=== PATIENT | male | born 1950 | race Caucasian/White ===

== ENCOUNTER 2021-11-02 07:01 | Inpatient (IN) | payer OTHER, SELFPAY ==
[2021-11-02] VITALS (16 sets, daily range): BP systolic 90–130; BP diastolic 39–68
[~2021-11-02] VITALS: Ht 177.8 cm; Wt 49.9 kg
[2021-11-02] MEDS ORDERED: NACL 0.9% 250 ML IV ONE (07:25)
--- NOTE | 2021-11-02 07:26 | NUR ---
WOUND PHOTOS TAKEN AND PLACED INTO PATIENT CHART
--- NOTE | 2021-11-02 07:30 | NUR ---
ASSUMED CARE FOR PATIENT AT THIS TIME
--- NOTE | 2021-11-02 08:00 | NUR ---
71Y M[place] [facility] [place] BLOODLY RED STOOL THAT BEGAN LAST NIGHT. BLOOD CONTINUES TO COME OUT OF PATIENT RECTUM. PT IS CURRENTLY A&OX0 AT THIS TIME AND PT IS NON-VERBAL. PT CURRENTLY WITHDRAWS FROM PAIN AND OPENS EYES TO VOICE. PT IS ABLE TO ANSWER YES OR NO QUESTIONS ONLY. PT ON TBAR ON 4L O2. MULTIPLE WOUNDS/SORE NOTED ON PATIENT R HAND, UPPER BACK, AND BUTTOCK REGION. WOUND PHOTOS TAKEN AND PLACED INTO PATIENT CHART. PT HAS G-TUBE AND CONDOM CATH IN PLACE [place] [facility] [place] BILATERAL UE EDEMA NOTED, +2. BRUISING NOTED WELL ON BILERAL UE. UPON ASCULATION CRACKLES HEARD IN PATIENT LUNGS. BRUISING NOTED ON PATIENT ABDOMEN AND ABDOMEN IS TENDER TO TOUCH. UPON PALPATION ON ADBOMEN PT FLINCHES TO PAIN. pmh: pacemaker, CAD, CABG, CHF, Pulm edema allx: dilaudid
--- NOTE | 2021-11-02 08:01 | NUR ---
PUBLIC INFORMATION SPECIALIST AT PT BEDSIDE.
--- NOTE | 2021-11-02 08:03 | NUR ---
covid yesika collected and urine collected bedside
--- NOTE | 2021-11-02 08:08 | NUR ---
URINE AND CONCHIS PONCE HANDED TO [employer] BEDSIDE
--- NOTE | 2021-11-02 08:15 | NUR ---
LAB AT BEDSIDE COLLECTING BLOODWORK
[2021-11-02] MEDS ORDERED: ONDANSETRON 4 MG/2 ML VIAL IVP PRN (08:40)
[2021-11-02] MEDS ORDERED: DOCUSATE SODIUM 100 MG GELCAP PO PRN (08:40)
[2021-11-02] MEDS ORDERED: LORazepam 2 MG/ML VIAL IVP PRN (08:40)
[2021-11-02] MEDS ORDERED: POTASSIUM CHLORIDE 10 MEQ TABER PO PRN (08:40)
[2021-11-02] MEDS ORDERED: ZOLPIDEM 10 MG TAB PO PRN (08:40)
[2021-11-02] MEDS ORDERED: MAG SULF 2000 MG/WATER PREMIX 50 ML IV PRN (08:40)
[2021-11-02] MEDS ORDERED: ACETAMINOPHEN 325 MG TAB PO PRN (08:40)
[2021-11-02] MEDS ORDERED: DEXT 5% /NACL 0.9% 1,000 ML IV ONE (08:45)
[2021-11-02] MEDS ORDERED: DEXTROSE 50% 50 ML SYR IVP PRN (08:45)
[2021-11-02 08:56] LABS: BASOPHILS % (AUTO) 0.1 % (0.0-2.0); EOSINOPHILS % (AUTO) 0.2 % (0.0-4.0); HEMATOCRIT 20.9 % (36-52); LYMPHOCYTES # (AUTO) 1.7 K/uL (2.0-11.5); LYMPHOCYTES % (AUTO) 14.8 % (20.5-51.1); MEAN CORPUSCULAR HEMOGLOBIN 32 pg (27-31); MEAN CORPUSCULAR HGB CONC 32 g/dL (33-37); MEAN CORPUSCULAR VOLUME 101.2 fL (80-94); MONOCYTES # (AUTO) 0.6 K/uL (0.8-1.0); MONOCYTES % (AUTO) 5.7 % (1.7-9.3); NEUTROPHILS % (AUTO) 79.2 % (42.2-75.2); PLATELET COUNT (AUTO) 40 K/uL (140-450); RED BLOOD CELL COUNT(AUTO) 2.07 MIL/uL (4.20-6.10); RED CELL DISTRIBUTION WIDTH 20.2 % (11.6-13.7); WHITE BLOOD COUNT (AUTO) 11.3 K/uL (4.8-10.8)
[2021-11-02] MEDS ORDERED: OCTREOTIDE ACETATE 1.25 MG in NACL 0.9% 250 ML IV SCH (09:00)
[2021-11-02] MEDS ORDERED: OCTREOTIDE ACETATE 100 MCG/ML VIAL IV SCH (09:00)
[2021-11-02 09:01] LABS: HEMOGLOBIN 6.6 g/dL (12.0-18.0)
[2021-11-02] MEDS ORDERED: FURO-572 GT (09:15)
[2021-11-02] MEDS ORDERED: LISI-486 GT (09:15)
[2021-11-02] MEDS ORDERED: DOCU50LI8 GT (09:15)
[2021-11-02] MEDS ORDERED: POTA10TA70 GT (09:15)
[2021-11-02] MEDS ORDERED: AMIO200T66 GT (09:15)
[2021-11-02] MEDS ORDERED: ASPI-1822 GT (09:15)
[2021-11-02] MEDS ORDERED: ATOR10TA PO (09:20)
[2021-11-02] MEDS ORDERED: CARV3.12 GT (09:20)
[2021-11-02] MEDS ORDERED: [UNRECOGNIZED DRUG - CODE] GT (09:20)
[2021-11-02 09:21] LABS: ALBUMIN 1.1 g/dL (3.4-5.0); ASPARTATE AMINOTRANSFERASE 49 U/L (15-37); CARBON DIOXIDE 23.1 mmol/L (21-32); CHLORIDE 107 mmol/L (98-107); CREATININE 0.7 mg/dL (0.6-1.3); GLUCOSE 121 mg/dL (74-106); POTASSIUM 4.1 mmol/L (3.5-5.1); SODIUM SERUM 136 mmol/L (136-145); TOTAL BILIRUBIN 1.1 mg/dL (0.0-1.0); UREA NITROGEN, BLOOD 38 mg/dL (7-18)
--- NOTE | 2021-11-02 09:24 | NUR ---
CT CONSENT SIGNED AND PLACED INTO PATIENT CHART. VERBAL CONSENT OBTAINED OVER PHONE FROM PATIENT SON/GAVINO ROMERO. DUAL CONSENT HEARD FROM SHANNON LARSON
[2021-11-02] MEDS ORDERED: PANTOPRAZOLE 40 MG INJ VIAL IVP SCH (09:29)
[2021-11-02 09:34] LABS: PROTHROMBIN TIME 12.7 secs (10.8-13.4)
--- NOTE | 2021-11-02 09:43 | NUR ---
BEDSIDE PLACING CENTRAL LINE INTO PATIENT R FEMORAL
[2021-11-02] MEDS ORDERED: NOREPINEPHRINE 4 MG in DEXTROSE 5% 250 ML IV PRN (09:55)
[2021-11-02] MEDS ORDERED: NOREPINEPHRINE 8 MG in DEXTROSE 5% 250 ML IV PRN (09:55)
--- NOTE | 2021-11-02 10:20 | NUR ---
PT TAKEN TO CT VIA [facility] ON THE WAY TO ICU
--- NOTE | 2021-11-02 10:24 | NUR ---
Patient will be admitted to care of DR. BEJARANO. Admited to ICU. Will go to room ICU BED 1. Belongings list completed. Report to SHANNON NGUYEN.
[2021-11-02] MEDS ORDERED: ZOLPIDEM 10 MG TAB GT PRN (10:47)
[2021-11-02] MEDS ORDERED: DOCUSATE 100 MG/10 ML UDC GT PRN (10:50)
[2021-11-02] MEDS ORDERED: POTASSIUM CHLORIDE 20% 40 MEQ/15 ML UDC GT PRN (10:50)
--- NOTE | 2021-11-02 11:00 | NUR ---
RECEIVED REPORT FROM ER NURSE. ADMITTED 71 Y/O MALE [place] [facility] [place] WITH A CC OF RECTAL BLEEDING X1 DAY. ADMITTING DX OF GI BLEED. HX OF CHF, DM, COVID, HTN, HLD, ANEMIA, CABG, AFIB, CARDIAC ARREST, TRACH, PEG.PT IS AOX2, APHASIC, ABLE TO FOLLOW SIMPLE COMMANDS. TRACH TO T-BAR WITH 4L O2. O2SAT 100%, NO SOB. WITH PEG CLAMPED. CONDOM CATH INTACT, DRAINING CLEAR YELLOW URINE. WITH RIGHT FEMORAL CCENTRAL LINE RUNNING D5NS 100 ML/HR, SANDOSTATIN 5ML/HR, LEVOPHED 6MCG/MIN
[2021-11-02] MEDS: ALBUMIN HUMAN 25% 50 ML IV SCH ×4 (11:33→23:47)
[2021-11-02] MEDS: BLOOD GLUCOSE MONITORING 1 DEV DEV FS SCH ×3 (12:27→20:26)
--- NOTE | 2021-11-02 12:30 | NUR ---
SEEN AND EXAMINED BY DR ENRIQUEZ. ORDERED TO GIVE TOTAL OF 2U PRBC AND 2U PLATELETS
[2021-11-02] MEDS: PIPERACILLIN/TAZOBACTAM 3.375 GM in DEXTROSE 5% 50 ML IV SCH ×2 (13:29→20:22)
--- NOTE | 2021-11-02 14:00 | NUR ---
SEEN AND EXAMINED BY DR MORGAN, ORDERS NOTED
--- NOTE | 2021-11-02 14:15 | NUR ---
DR ERNNADEZ CALLED, ORDERED TO FLUSH GT WITH 100ML WATER THEN CHECK FOR BLOOD IN RESIDUALS
[2021-11-02] MEDS: BOWEL EVACUANT DRINK 4,000 ML PDS PO SCH (14:50)
--- NOTE | 2021-11-02 15:00 | NUR ---
DR ERNANDEZ CALLED, SPOKE TO PT'S SON REGARDING COLONOSCOPY. ORDERED TO OBTAIN CONSENT FOR COLONOSCOPY AND GIVE GOLYTELY 10 OUNCES Q1H X 10 DOSES
--- NOTE | 2021-11-02 16:20 | NUR ---
PRBC TRANSFUSION STARTED. WILL MONITOR V/S AND FOR ADVERSE REACTIONS
[2021-11-02] MEDS: INSULIN LISPRO SLIDING SCALE 100 UNITS/ML VIAL SUBQ PRN (16:42)
--- NOTE | 2021-11-02 18:15 | NUR ---
BLOOD TRANSFUSION DONE, VS WNL, NO ADVERSE REACTIONS NOTED
--- NOTE | 2021-11-02 18:20 | NUR ---
SECOND UNIT OF PRBC TRANSFUSION STARTED. WILL MONITOR V/S AND FOR ADVERSE REACTIONS
--- NOTE | 2021-11-02 19:00 | NUR ---
ONGOING BLOOD TRANSFUSION,NO UNTOWARD REACTIONS NOTED AT THIS TIME
--- NOTE | 2021-11-02 19:30 | NUR ---
ASSUMED CARE OF PT.INITIAL ASSESSMENT COMPLETED.PT AWAKE; ABLE TO FOLLOW SIMPLE COMMANDS.SR NOTED ON MONITOR.TRACH TO T PIECE 4LPM.W/TLC TO RT FEMORAL INTACT,W/GOOD BLOOD RETURN TO ALL 3 PORTS.INFUSING BLOOD TRANSFUSION,LEVOPHED 8MG IN 250ML D5W AT 4MCG/MIN,SANDOSTATIN DRIP AT 5ML/HR AND D5NS AT 10 ML/HR.W/GTUBE INTACT,CLAMPED.NPO AT THIS TIME.W/CONDOM CATHETER ALREADY IN PLACE.W/MULTIPLE PRESSURE ULCERS NOTED.GENERALIZED WEAKNESS ON ALL EXTREMITIES.W/SCD TO BLE.FLACC 0
--- NOTE | 2021-11-02 20:00 | NUR ---
GOLYTELY ADMINISTERED ORDERED.
--- NOTE | 2021-11-02 20:15 | NUR ---
ORAL CARE USING VAP KIT GIVEN; PTS MOUTH VERY DRY.MOISTURIZED.INTERMITTENT COUGHING ALSO NOTED; SUCTIONED SMALL AMT OF THICK CREAMY SECRETIONS NOTED.REPOSITIONED.
[2021-11-02] MEDS: AMIODARONE 200 MG TAB GT SCH (20:22)
[2021-11-02] MEDS: PANTOPRAZOLE 40 MG INJ VIAL IVP SCH (20:32)
--- NOTE | 2021-11-02 21:15 | NUR ---
BLOOD TRANSFUSION COMPLETED.NO UNTOWARD REACTIONS NOTED.BM NOTED; MODERATE AMT OF BLOODY STOOL NOTED.PT CLEANED.
[2021-11-03] VITALS (24 sets, daily range): BP systolic 101–129; BP diastolic 50–70
--- NOTE | 2021-11-03 | NUR ---
LARGE AMT OF BLOODY STOOLS NOTED; PT CLEANED.ALL LINENS CHANGED.REPOSITIONED.
[2021-11-03 00:31] LABS: EOSINOPHILS % (AUTO) 0.1 % (0.0-4.0); MEAN CORPUSCULAR HEMOGLOBIN 31 pg (27-31)
[2021-11-03 00:36] LABS: BASOPHILS % (AUTO) 0.1 % (0.0-2.0); HEMATOCRIT 26.2 % (36-52); HEMOGLOBIN 8.7 g/dL (12.0-18.0); LYMPHOCYTES # (AUTO) 1.7 K/uL (2.0-11.5); LYMPHOCYTES % (AUTO) 17.2 % (20.5-51.1); MEAN CORPUSCULAR HGB CONC 33 g/dL (33-37); MEAN CORPUSCULAR VOLUME 94.2 fL (80-94); MONOCYTES # (AUTO) 0.8 K/uL (0.8-1.0); MONOCYTES % (AUTO) 7.6 % (1.7-9.3); NEUTROPHILS # (AUTO) 7.5 K/uL (1.8-7.7); RED BLOOD CELL COUNT(AUTO) 2.78 MIL/uL (4.20-6.10); RED CELL DISTRIBUTION WIDTH 17.6 % (11.6-13.7); WHITE BLOOD COUNT (AUTO) 9.9 K/uL (4.8-10.8)
--- NOTE | 2021-11-03 01:02 | NUR ---
PT WAS PLACED ON CA 28% 6L TRACH CARE COMPLETED STOMA IS RAW AND APPEARS TO HAVE SLIT ON LEFT SIDE AND NOT CURRENTLY BLEEDING PT HAS PRESSURE SORE UNDER RIGHT SIDE OF FLANGE OPTIFOAM PLACED BETWEEN TRACH PAD IN ATTEMPTS OF RELIEVING PRESSURE AND PROVIDING COMFORT RN AWARE AND WILL ENDORSE STOMA CONDITION TO DAY SHIFT WILL CONTINUE TO MONITOR
[2021-11-03 01:54] LABS: PLATELET COUNT (AUTO) 27 K/uL (140-450)
[2021-11-03] MEDS ORDERED: fentaNYL citrate 0.05 MG/ML VIAL ONE (03:36)
[2021-11-03] MEDS ORDERED: MIDAZOLAM 5 MG/5 ML VIAL ONE (03:36)
--- NOTE | 2021-11-03 03:47 | NUR ---
DR ERNANDEZ, GI, AT BEDSIDE TO DO COLONOSCOPY.
[2021-11-03] MEDS ORDERED: LIDOCAINE/EPI 1% 1:100000 20 ML VIAL INJ SCH (04:00)
--- NOTE | 2021-11-03 04:00 | NUR ---
STARTED PLATELET TRANSFUSION, VERIFIED W/SHANNON JEAN BAPTISTE.WILL CONTINUE TO CLOSELY MONITOR PT FOR ANY UNTOWARD REACTIONS.FLACC 0
[2021-11-03] MEDS ORDERED: EPINEPHrine PFS 0.1 MG/ML SYR IVP ONE (04:01)
[2021-11-03] MEDS ORDERED: LIDOCAINE MPF 1% 0 ML ONE (04:02)
[2021-11-03] MEDS ORDERED: LIDOCAINE/EPI MPF 1%1:200000 30 ML VIAL INJ ONE (04:04)
--- NOTE | 2021-11-03 04:15 | NUR ---
BM NOTED; LARGE AMT OF LIQUID BLOODY STOOL.PT CLEANED.REPOSITIONED.FLACC 0
[2021-11-03] MEDS ORDERED: MIDAZOLAM 2 MG/2 ML VIAL IVP ONE (04:30)
[2021-11-03] MEDS ORDERED: fentaNYL citrate 0.05 MG/ML VIAL IVP ONE (04:35)
--- NOTE | 2021-11-03 05:15 | NUR ---
1ST UNIT PLATELETPHERESIS COMPLETED.NO UNTOWARD REACTIONS NOTED.
[2021-11-03] MEDS ORDERED: MIDAZOLAM 2 MG/2 ML VIAL IVP SCH (05:16)
[2021-11-03] MEDS ORDERED: fentaNYL citrate 0.05 MG/ML VIAL IVP SCH (05:17)
--- NOTE | 2021-11-03 05:45 | NUR ---
2ND UNIT PLATELET STARTED,VERIFIED WITH SHANNON JEAN BAPTISTE.
--- NOTE | 2021-11-03 05:54 | NUR ---
PHONE CALL FROM PTS SON, HEATHER, UPDATED ON PTS PRESENT CONDITION.MADE AWARE COLONOSCOPY ALREADY DONE.QUESTIONS ANSWERED
--- NOTE | 2021-11-03 06:00 | NUR ---
TEMP 95.9/TEMPORAL, AXILLA TEMP NOT READING.STACEY HUGGER IN PLACE.ONGOING PLATELET TRANSFUSION
[2021-11-03] MEDS: PIPERACILLIN/TAZOBACTAM 3.375 GM in DEXTROSE 5% 50 ML IV SCH ×3 (06:32→21:45)
[2021-11-03] MEDS: ALBUMIN HUMAN 25% 50 ML IV SCH ×2 (07:00→11:27)
[2021-11-03] MEDS: BLOOD GLUCOSE MONITORING 1 DEV DEV FS SCH ×4 (07:22→23:45)
--- NOTE | 2021-11-03 07:24 | NUR ---
SEEN AND EXAMINED BY DR BEJARANO.UPDATED ON PTS PRESENT CONDITION. Addendum: 11/03/21 at 4413 by Leanna Rivas RN REPORT GIVEN TO PATRICK ORTEGA
--- NOTE | 2021-11-03 07:30 | NUR ---
RECEIVED REPORT FROM CALL CENTER NURSE NURSE. PT IS AOX2, APHASIC, ABLE TO FOLLOW SIMPLE COMMANDS. TRACH TO T-BAR WITH 5L O2. O2SAT 100%, NO SOB. WITH PEG CLAMPED. CONDOM CATH INTACT, DRAINING CLEAR YELLOW URINE. WITH RIGHT FEMORAL CENTRAL LINE RUNNING D5NS 50 ML/HR, SANDOSTATIN 5ML/HR, LEVOPHED OFF SINCE 2029 YESTERDAY. SKIN NOT INTACT, REFER TO SKIN ASSESSMENT. SAFETY PRECAUTIONS IN PLACE. WILL CONTINUE TO MONITOR
[2021-11-03] MEDS: DEXT 5% /NACL 0.9% 1,000 ML IV SCH (07:44)
--- NOTE | 2021-11-03 07:59 | NUR ---
DR ERNANDEZ ORDERED TO STOP SANDOSTATIN AND START TUBE FEEDING, REFER TO FNS FOR TUBE FEEDING
--- NOTE | 2021-11-03 09:00 | NUR ---
DUE MEDS GIVEN VIA GT. TOLERATED WELL. ORAL CARE DONE TURNED AND REPOSITIONED
--- NOTE | 2021-11-03 09:15 | NUR ---
BLADDER DISTENTION NOTED. BLADDER SCAN DONE WITH >359ML RETAINING. DR BEJARANO ORDERED TO INSERT PAEZ
[2021-11-03] MEDS: CALCIUM CARBONATE 500 MG TAB.CHEW GT SCH (09:30)
[2021-11-03] MEDS: AMIODARONE 200 MG TAB GT SCH ×2 (09:30→21:33)
[2021-11-03] MEDS: PANTOPRAZOLE 40 MG INJ VIAL IVP SCH ×2 (09:30→21:17)
--- NOTE | 2021-11-03 09:30 | NUR ---
PAEZ CATH INSERTED ASEPTICALLY, DRAINING CLEAR YELLOW URINE, 400ML OUTPUT
[2021-11-03] MEDS ORDERED: fentaNYL citrate 0.05 MG/ML VIAL IVP PRN (11:40)
--- NOTE | 2021-11-03 12:00 | NUR ---
SEEN AND EXAMINED BY DR ENRIQUEZ. ORDERS NOTED
--- NOTE | 2021-11-03 12:00 | NUR ---
FENTANYL 25MCG GIVEN ORDERED FOR PAIN. WASTED 75MCG FROM VIAL, WITNESSED BY PORTIA
[2021-11-03 12:22] LABS: EOSINOPHILS % (AUTO) 0.2 % (0.0-4.0); HEMOGLOBIN 8.1 g/dL (12.0-18.0); LYMPHOCYTES # (AUTO) 1.3 K/uL (2.0-11.5); LYMPHOCYTES % (AUTO) 12.9 % (20.5-51.1); MEAN CORPUSCULAR HEMOGLOBIN 32 pg (27-31); MEAN CORPUSCULAR HGB CONC 34 g/dL (33-37); MEAN CORPUSCULAR VOLUME 93.6 fL (80-94); MONOCYTES # (AUTO) 0.6 K/uL (0.8-1.0); MONOCYTES % (AUTO) 6.3 % (1.7-9.3); NEUTROPHILS # (AUTO) 8.1 K/uL (1.8-7.7); NEUTROPHILS % (AUTO) 80.6 % (42.2-75.2); PLATELET COUNT (AUTO) 56 K/uL (140-450); RED BLOOD CELL COUNT(AUTO) 2.56 MIL/uL (4.20-6.10)
[2021-11-03 12:32] LABS: ANION GAP 13.6 (8-16); CARBON DIOXIDE 21.5 mmol/L (21-32); CHLORIDE 107 mmol/L (98-107); CREATININE 0.8 mg/dL (0.6-1.3); GLUCOSE 89 mg/dL (74-106); POTASSIUM 3.1 mmol/L (3.5-5.1); SODIUM SERUM 139 mmol/L (136-145); UREA NITROGEN, BLOOD 34 mg/dL (7-18)
[2021-11-03] MEDS: BOWEL EVACUANT DRINK 4,000 ML PDS PO SCH (13:47)
--- NOTE | 2021-11-03 14:30 | NUR ---
PT ASLEEP, NO SOB, FLACC 0, VS WNL
--- NOTE | 2021-11-03 17:00 | NUR ---
NO APPARENT DISTRESS. PT'S SON AT BEDSIDE
--- NOTE | 2021-11-03 17:55 | NUR ---
FENTANYL 25MCG GIVEN ORDERED FOR PAIN. WASTED 75MCG FROM VIAL, WITNESSED BY PORTIA
[2021-11-03 18:37] LABS: BASOPHILS % (AUTO) 0.1 % (0.0-2.0); EOSINOPHILS % (AUTO) 0.3 % (0.0-4.0); HEMATOCRIT 25.9 % (36-52); HEMOGLOBIN 8.6 g/dL (12.0-18.0); LYMPHOCYTES # (AUTO) 1.7 K/uL (2.0-11.5); LYMPHOCYTES % (AUTO) 17.3 % (20.5-51.1); MEAN CORPUSCULAR HEMOGLOBIN 31 pg (27-31); MEAN CORPUSCULAR HGB CONC 33 g/dL (33-37); MEAN CORPUSCULAR VOLUME 94.6 fL (80-94); MONOCYTES # (AUTO) 0.6 K/uL (0.8-1.0); NEUTROPHILS # (AUTO) 7.6 K/uL (1.8-7.7); NEUTROPHILS % (AUTO) 76.3 % (42.2-75.2); PLATELET COUNT (AUTO) 49 K/uL (140-450); RED BLOOD CELL COUNT(AUTO) 2.74 MIL/uL (4.20-6.10); RED CELL DISTRIBUTION WIDTH 18.5 % (11.6-13.7)
--- NOTE | 2021-11-03 19:30 | NUR ---
RECEIVED REPORT AT BEDSIDE FROM PATRICK ORTEGA DAYSHIFT NURSE FOR CONTINUITY OF CARE. PT IS AOX1, AWAKE AND ALERT AND CAN MOUTH WORDS TO MAKE NEEDS KNOWN. HOB ELEVATED 35% HE HAS A TRACH AND IS ON 5 LITERS HUMIDIFIED AIR. PT NOTED WITH A LEFT F/A + 2 PITTING EDEMA HE ALSO HAS A BLISTER ON THE RIGHT HAND 3 DECUBITUS ON THE BACK WELL 1 ON THE SACRUM AREA. PT ALSO HAS A LEFT F/A 22G WHICH IS SALINE LOCKED. HE HAS A TRIPLE LUMEN CENTRAL LINE RUNNING D5 N/S AT 50MLS/HR. PT ALSO HAS A PAEZ CATHETER INTACT WITH MINIMAL YELLOW CLOUDY URINE DRAINED. PT WAS SUCTIONED X1 AND REPOSITIONED IN BED HE IS SITTING UP HOB MOVED TO 45% HEART RHYTHM IS SR ON MONITOR AND AND V/S FOLLOWS: B/P IS 121/68 P 76 02 100% WITH 5 LITERS HUMIDIFIED TRACH TO PIECE. ALL FALLS PRECAUTIONS IN PLACE.
--- NOTE | 2021-11-03 21:30 | NUR ---
PT SUCTIONED X1 SCANT BLOOD NOTED WITH A SMALL AMOUNT OF SECRETIONS. LUNG SOUNDS DIMINISHED WITH RHONCHI PT ALSO HAD A SMALL LOOSE BLOODY BM. STOOL OCCULT SAMPLE COLLECTED AND SENT TO LAB. PT TURNED, CLEANED AND REPOSITIONED IN BED. G TUBE RUNNING GLUCERNA 1.2 AT 20MLS/HR. NO RESIDUAL NOTED. PT ABDOMEN SOFT AND SLIGHTLY DISTENDED. PT WAS GIVEN AMIODARONE VIA GT WELL PEPCID GIVEN IVP VIA TRIPLE LUMEN CENTRAL LINE. PT ALSO HAS A ZOSYN HUNG AND RUNNING ORDERED. ALL FALLS AND ASPIRATION PRECAUTIONS IN PLACE.
--- NOTE | 2021-11-03 23:56 | NUR ---
PT WAS FOUND PULLING ON HIS TRACH HE WAS SUCTION X1 BY RT MUCUS DISCHARGE WAS PINK TINGED. PT WAS GIVEN ATIVAN FOR AGITATION. FINGERSTICK IS 130 NO HUMALOG COVERAGE NEEDED.
[2021-11-04] VITALS (12 sets, daily range): BP systolic 98–144; BP diastolic 59–80
[2021-11-04 00:24] LABS: BASOPHILS % (AUTO) 0.1 % (0.0-2.0); EOSINOPHILS % (AUTO) 0.1 % (0.0-4.0); HEMATOCRIT 26.4 % (36-52); HEMOGLOBIN 8.8 g/dL (12.0-18.0); LYMPHOCYTES # (AUTO) 1.2 K/uL (2.0-11.5); LYMPHOCYTES % (AUTO) 12.9 % (20.5-51.1); MEAN CORPUSCULAR HEMOGLOBIN 32 pg (27-31); MEAN CORPUSCULAR HGB CONC 33 g/dL (33-37); MEAN CORPUSCULAR VOLUME 94.2 fL (80-94); MONOCYTES # (AUTO) 0.6 K/uL (0.8-1.0); NEUTROPHILS # (AUTO) 7.2 K/uL (1.8-7.7); NEUTROPHILS % (AUTO) 79.9 % (42.2-75.2); PLATELET COUNT (AUTO) 43 K/uL (140-450); RED CELL DISTRIBUTION WIDTH 18.7 % (11.6-13.7)
--- NOTE | 2021-11-04 00:25 | NUR ---
LAB DRAWS DONE AT BEDSIDE VIA CENTRAL LINE. NO MORE BM NOTED. PT SLEEPING CALM AND RELAXED. ALL ORDERED PRECAUTIONS IN PLACE. G TUBE FEEDING BUMPED UP TO 40MLS/HR.
--- NOTE | 2021-11-04 02:33 | NUR ---
PT RESTING COMFORTABLY W/ NO DISTRESS NOTED
[2021-11-04] MEDS: DEXT 5% /NACL 0.9% 1,000 ML IV SCH ×2 (03:25→15:00)
--- NOTE | 2021-11-04 05:00 | NUR ---
PT WAS TURNED, CLEANED AND REPOSITIONED IN BED. LAB DRAWS AT BEDSIDE.
[2021-11-04 05:55] LABS: BASOPHILS % (AUTO) 0.1 % (0.0-2.0); EOSINOPHILS % (AUTO) 0.2 % (0.0-4.0); HEMATOCRIT 26.5 % (36-52); HEMOGLOBIN 8.8 g/dL (12.0-18.0); LYMPHOCYTES # (AUTO) 1.6 K/uL (2.0-11.5); LYMPHOCYTES % (AUTO) 18.1 % (20.5-51.1); MEAN CORPUSCULAR HEMOGLOBIN 31 pg (27-31); MEAN CORPUSCULAR HGB CONC 33 g/dL (33-37); MONOCYTES # (AUTO) 0.6 K/uL (0.8-1.0); MONOCYTES % (AUTO) 6.6 % (1.7-9.3); NEUTROPHILS # (AUTO) 6.4 K/uL (1.8-7.7); PLATELET COUNT (AUTO) 46 K/uL (140-450); RED BLOOD CELL COUNT(AUTO) 2.79 MIL/uL (4.20-6.10); RED CELL DISTRIBUTION WIDTH 18.5 % (11.6-13.7); WHITE BLOOD COUNT (AUTO) 8.6 K/uL (4.8-10.8)
--- NOTE | 2021-11-04 06:00 | NUR ---
ZOSYN HUNG AND FINGERSTICK IS 148 NO COVERAGE NEEDED. FEEDING IS AT 50MLS/HR AND TOLERATED. PAEZ CATHETER HAD 150 LIGHT KRYSTLE URINE OUT. PT HAS NO S/S OF PAIN OR DISTRESS NOTED. ALL ORDERED PRECAUTIONS IN PLACE.
[2021-11-04 06:10] LABS: ANION GAP 12.3 (8-16); CARBON DIOXIDE 22.4 mmol/L (21-32); CHLORIDE 109 mmol/L (98-107); CREATININE 1.1 mg/dL (0.6-1.3); GLUCOSE 152 mg/dL (74-106); POTASSIUM 3.7 mmol/L (3.5-5.1); SODIUM SERUM 140 mmol/L (136-145); UREA NITROGEN, BLOOD 33 mg/dL (7-18)
[2021-11-04] MEDS: BLOOD GLUCOSE MONITORING 1 DEV DEV FS SCH ×3 (06:38→17:40)
[2021-11-04] MEDS: PIPERACILLIN/TAZOBACTAM 3.375 GM in DEXTROSE 5% 50 ML IV SCH ×3 (06:39→20:36)
[2021-11-04 06:49] LABS: BILIRUBIN,DIRECT 1.5 mg/dL (0.0-0.3); TOTAL BILIRUBIN 2.3 mg/dL (0.0-1.0)
[2021-11-04 07:06] LABS: ALBUMIN 2.3 g/dL (3.4-5.0)
[2021-11-04 07:07] LABS: FOLIC ACID 15.4 ng/mL (>3.0)
--- NOTE | 2021-11-04 07:25 | NUR ---
RECEIVED BEDSIDE REPORT FROM SOFIA ACUNA RN FOR CONTINUITY OF CARE. PT ASLEEP IN THE BED, EYES CLOSED, PERRL. TRACH PIECE IN PLACE, FIO2 28%, 6L. SR ON THE MONITOR. GTUBE TO TUBE FEEDING INFUSING GLUCERNA 1.2 AT 50 ML/HR W/ 100 ML Q6H. ACTIVE BOWEL SOUNDS THROUGHOUT. F/C IN PLACE, DRAINING TO GRAVITY. GENERALIZED WEAKNESS. SKIN NOT INTACT, SEE WOUND ASSESSMENT. LUE +2 PITTING EDEMA. R FEM TLC CENTRAL LINE, PATENT INTACT, INFUSING D5NS AT 50 ML/HR. STANDARD PRECAUTIONS IN PLACE. CALL LIGHT WITHIN REACH. SAFETY PRECAUTIONS MET. INITIAL ASSESSMENT COMPLETE, WILL CONTINUE TO CLOSELY MONITOR.
[2021-11-04] MEDS: CALCIUM CARBONATE 500 MG TAB.CHEW GT SCH (09:09)
[2021-11-04] MEDS: PANTOPRAZOLE 40 MG INJ VIAL IVP SCH ×2 (09:09→20:36)
[2021-11-04] MEDS: AMIODARONE 200 MG TAB GT SCH ×2 (09:10→20:35)
[2021-11-04] MEDS ORDERED: NACL 0.9% 1,000 ML IV SCH (09:15)
--- NOTE | 2021-11-04 09:30 | NUR ---
DR SHELTON CALLED ON THE PHONE. UPDATED REGARDING PT CONDITION. ORDERS RECEIVED.
--- NOTE | 2021-11-04 10:22 | NUR ---
PATIENT HAS BEEN SCREENED AND CATEGORIZED HIGH NUTRITION RISK. PATIENT WILL BE SEEN WITHIN 1-2 DAYS OF ADMISSION. RECEIVED CONSULT AND REFERRAL FOR TUBE FEEDING EMILIE MARTIN RD
--- NOTE | 2021-11-04 10:51 | NUR ---
DC PLANNIN YRS OLD MALE PATIENT WAS ADMITTED FROM [facility] WITH A DX OF GI BLEED. PATIENT HAS A HX OF TRACHEOSTOMY AND CHRONIC REP FAILURE. ON T-PIECE O2 6L FIO2 28%. H/H ON ADMISSION 6.6/20.9 AND PLATELETS 27 TRANSFUSED 2 UNITS PRBC AND 2 BAG OF PLATELETS. STOOL OB POSITIVE AND C-DIFF IS PENDING. H/H AFTER TRANSFUSION 8.8/26.5 . COLONOSCOPY DONE BY DR ERNANDEZ. HEMO AND CARDIO FOLLOWING. DC PLAN TO RETURN TO [facility] WHEN STABLE. CM TO FOLLOW Addendum: 11/04/21 at 1107 by Hailey Amaro RN DC PLANNING: CALLED [facility] SPOKE WITH MELISSA LOUIS PT'S CLINICAL. CORRECTED THE ADM[place]ING [place] [facility] [place] BOYD, STATED WILL CONTINUE THE CARE. CM TO FOLLOW Addendum: 11/05/21 at 1456 by Hailey Amaro RN DC PLANNING: GI DR ERNANDEZ PERFORMED EGD COLONOSCOPY FOUND POLYPS NOT AMENABLE TO REMOVAL DUE TO THROMBOCYTOPENIA TODAY'S LAB WBC 14.0 CONTINUE IV ABX ZOSYN. DC PLAN TO GO BACK TO [facility] TOMORROW 11/06/21 WHEN STABLE. CM TO FOLLOW Addendum: 11/08/21 at 0935 by Hailey Amaro RN DC PLANNING LATE ENTRY 11/07/21 1700 CM MET PATIENT'S SON HEATHER NIETO AT [facility] DISCUSSED THE ISSUES AND CONCERNS, STATED WHEN PATIENT CAME HE REQUESTED THE MEDICAL RECORD FROM [facility] HOW EVER SPOKE WITH DR HUSAIN AND ADMITTING DR WHICH HE DIDN'T REMEMBER THE NAME. HE ALSO STATED AT THE BEGINNING [facility] DON'T KNOW THE MEDICAL HISTORY AND CALLED ANN TO HELP HIM. HOWEVER HE STATED SICE ADMISSION HE SPOKE ALL THE DOCTORS AND UNDERSTOOD THE MEDICAL CONDITION OF HIS DAD. I DISCUSSED WITH HIM REGARDING THE DC PLANNING HE STATED HE WANTED HIS DAD TO BE TRANSFERRED TO [facility]. CM UPDATED PT'S CLINICAL AND WILL SUBMIT THE REQUEST TO [facility] TO FOLLOW.
--- NOTE | 2021-11-04 11:05 | NUR ---
SEEN AND EXAMINED BY DR SHELTON.
--- NOTE | 2021-11-04 11:15 | NUR ---
JACQUE WOUND CARE NURSE AT BEDSIDE.
--- NOTE | 2021-11-04 11:20 | NUR ---
PT CLEANED AND REPOSITIONED. M LIQUID BLOODY MUCOUS STOOL NOTED. APPLIED RECTAL BAG, DRAINING TO GRAVITY. TOLERATED WELL. WILL CONTINUE TO CLOSELY MONITOR.
--- NOTE | 2021-11-04 11:30 | NUR ---
WOUND CARE EVALUATION NOTE: SKIN ASSESSMENT DONE WITH THIS 71 Y/O PT. ADMITTED WITH MULTIPLE PRESSURE INJURIES COVID RELATED SKIN FAILURE AND NELLI SCALE AT VERY HIGH RISK, PT ADMITTED WITH GI BLEEDING. PT. WITH TRACH AND PEG. PT. IS AWAKE BUT NOT RESPONDING, NO EYE CONTACT, ASSIST IN BED BATH, TURNING AND REPOSITION. PT. WITH FEW EPISODES OD LOOSE BLOODY BM DURING SKIN ASSESSMENT, RECTAL BAG APPLIED. F/C MODERATED AMOUNT KRYSTLE COLOR URINE OUT PUT. POC DISCUSSED WITH PRIMARY RN AND INSTRUCT PRIMARY RN AND DR. SHELTON WHO VISIT PT. AT BEDSIDE DURING CARE. DR. SHELTON MADE AWARE GT SITE LEAKAGE OF FEEDING FLUID AND PER PRIMARY RN GT HELD WITH RESIDUAL NOTICE. H/H 8.1/[address] CONSULT IN PLACED. INTEGUMENTARY: -BILATERAL EXTREMITIES + 2 PETTING EDEMA WITH ECCHYMOSIS -RIGHT HAND SKIN TEAR 3X3CM SUPERFICIAL DEPTH, WOUND BED 100% RED GRANULATING TISSUE, MOIST, NO ODOR, ADAL-WOUND SKIN MOIST AND THIN -TRACH AND GT ADAL-STOMA SKIN DRY AND INTACT. -MID THORACIS SPINE DTI 0.5X1CM MAROON COLOR, ADAL WOUND SKIN 100% FULL EPITHELIAL CLOSURE WITH HI RISK BREAKDOWN DUE TO SURROUNDING SKIN NON-BLANCHABLE REDNESS -LOWER LUMBAR SPINE PRESSURE INJURY UN-STAGEABLE 4X2X0.1CM WOUND BED 90 % DARK BROWN/YOON COLOR SLOUGH TISSUE AND 10% RED GRANULATION TISSUE AROUND WOUND EDGE, WOUND BED MOIST, NO ODOR, WOUND EDGE FLAT AND ATTACHED, ADAL WOUND SURROUNDING SKIN NON-BLANCHABLE REDNESS -SACRALCOCCYX PRESSURE INJURY UN-STAGEABLE 6X4X0.1CM WOUND BED 70 % DARK BROWN/YOON COLOR SLOUGH TISSUE, 20% YELLOW SLOUGH TISSUE AND 10% RED GRANULATION TISSUE AROUND WOUND EDGE, WOUND BED MOIST, NO ODOR, WOUND EDGE FLAT AND ATTACHED, ADAL WOUND SURROUNDING SKIN NON-BLANCHABLE REDNESS -COVID RELATED SKIN FAILURE UN-STAGEABLE TO POSTERIOR RIGHT LATERAL TRUNK OF BODY 14X5CM AND CLUSTERS LESIONS WITH LARGEST 1.5X1CM, 100% BROWN SLOUGH TISSUE, MOIST, NO ODOR, ADAL-WOUNDS SKIN RED AND INTACT, NO ODOR, NON -BLANCHABLE REDNESS TO SURROUNDING SKIN -RIGHT HIP AND RIGHT ISCHIUM OLD HEALED SCARS TISSUE. -GROINS AND SCROTAL AREA, SKIN MOIST AND INTACT -BILATERAL HEELS DRY PEELING CALLUS, COLD TO TOUCH, DIMINISHED BLOOD RETURN X10 TOES RECOMMENDATIONS -APPLY RECTAL BAG FOR MOISTURE CONTROL AND PREVENT SACRAL WOUND CONTAMINATION -APPLY BARRIER CR. TO GT SITE ADAL-STOMA SKIN BID -CLEANSE RIGHT HAND SKIN TEAR WITH NS, PAT DRY, APPLY OIL EMULSION DRESSING AND COVER WITH ISLAND DRESSING QD AND PRN IF SOILING -CLEANSE WITH NS, PAT DRY, APPLY THERAHONEY TO POSTERIOR RIGHT LATERAL TRUNK OF BODY, THORACES SPINE, LUMBAR SPINE SACRALCOCCYX, DRY AND COVER WITH FOAM DRESSING CHANGE QD AND PRN IF SOILING, OFFLOADING AT ALL TIMES -APPLY HYDRAGUARD TO GROINS AND SCROTAL AREAS AND BILATERAL HEELS BID AND PRN IF SOILING -TURN AND REPOSITION PATIENT Q 2H -INSPECT SKIN UNDER AND AROUND MEDICAL DEVICES. -ASSESS AND MONITOR SKIN CONDITION DURING POSITION CHANGE -OFFLOAD BILATERAL HEELS BY PLACING PILLOWS UNDER CALVES AT ALL TIMES, UNLESS OTHERWISE CONTRAINDICATED -APPLY HEEL PROTECTORS -PRESSURE REDISTRIBUTION SURFACE AND OFFLOADING SACRALCOCCYX -MANAGE FRICTION AND SHEAR BY USING LIFT SHEET TO REPOSITION PATIENT -HOB 30 DEGREE TOLERATE -PLEASE FOLLOW RD RECOMMENDATIONS PLEASE NOTIFIED WOUND CARE NURSE FOR ANY CHANGE OF SKIN CONDITION Addendum: 11/04/21 at 1515 by Gokul Maguire RN (Grace) -CLEANSE WITH NS, PAT DRY, APPLY THERAHONEY TO THORACES SPINE, LUMBAR SPINE SACRALCOCCYX, DRY AND COVER WITH FOAM DRESSING CHANGE QD AND PRN IF SOILING, OFFLOADING AT ALL TIMES -APPLY HYDROCOLLOID DRESSING TO POSTERIOR RIGHT LATERAL TRUNK OF BODY Q3 DAYS AND PRN IF SOILING
--- NOTE | 2021-11-04 12:00 | NUR ---
RECEIVED DOWNGRADE ORDERS FROM DR SHELTON.
--- NOTE | 2021-11-04 12:41 | NUR ---
11/04/21 RD INITIAL ASSESSMENT COMPLETED PLEASE REFER TO NUTRITION ASSESSMENT UNDER CARE ACTIVITY FOR ESTIMATED NUTRITIONAL NEEDS. 1. CONTINUE GLUCERNA 1.2 @ 50 ML/HR TOLERATED -FWF: 100 ML Q6H -PROVIDES 1440 KCAL AND 72 GM PROTEIN 2. RECOMMEND ARMAND BID PER RD PROTOCOL -WITH ARMAND BID, PT WILL RECEIVE 1600 KCAL AND ~100 GM PROTEIN MEETING 85% ESTIMATED KCAL AND 100% ESTIMATED PROTEIN NEEDS 3. MONITOR GASTRIC RESIDUALS 4. RD TO FOLLOW-UP 2-3 DAYS, HIGH RISK EMILIE MARTIN RD
[2021-11-04 12:51] LABS: BASOPHILS % (AUTO) 0.1 % (0.0-2.0); EOSINOPHILS % (AUTO) 0.3 % (0.0-4.0); HEMATOCRIT 27.3 % (36-52); LYMPHOCYTES # (AUTO) 1.4 K/uL (2.0-11.5); LYMPHOCYTES % (AUTO) 16.8 % (20.5-51.1); MEAN CORPUSCULAR HEMOGLOBIN 32 pg (27-31); MEAN CORPUSCULAR HGB CONC 33 g/dL (33-37); MEAN CORPUSCULAR VOLUME 95.7 fL (80-94); MONOCYTES # (AUTO) 0.6 K/uL (0.8-1.0); MONOCYTES % (AUTO) 7.4 % (1.7-9.3); NEUTROPHILS # (AUTO) 6.4 K/uL (1.8-7.7); NEUTROPHILS % (AUTO) 75.4 % (42.2-75.2); PLATELET COUNT (AUTO) 41 K/uL (140-450); RED BLOOD CELL COUNT(AUTO) 2.85 MIL/uL (4.20-6.10); RED CELL DISTRIBUTION WIDTH 19.2 % (11.6-13.7); WHITE BLOOD COUNT (AUTO) 8.5 K/uL (4.8-10.8)
--- NOTE | 2021-11-04 13:35 | NUR ---
SEEN AND EXAMINED BY DR BOYD.
--- NOTE | 2021-11-04 16:20 | NUR ---
SEEN AND EXAMINED BY DR ENRIQUEZ.
[2021-11-04] MEDS ORDERED: POTASSIUM CHLORIDE 20% 40 MEQ/15 ML UDC GT SCH (17:00)
--- NOTE | 2021-11-04 17:00 | NUR ---
TUBE FEEDING HELD FOR ABD ULTRASOUND TONIGHT @ 2200.
--- NOTE | 2021-11-04 17:40 | NUR ---
FAMILY, SON, AT BEDSIDE. ALL QUESTIONS ANSWERED AT THIS TIME.
--- NOTE | 2021-11-04 19:28 | NUR ---
ENDORSED TELEPHONE REPORT TO BENY TURCIOS RN FOR CONTINUITY OF CARE.
--- NOTE | 2021-11-04 20:00 | NUR ---
TRANSFERRED TO TELE ROOM 108A. ENDORSED TO SHANNON PARKER
--- NOTE | 2021-11-04 20:05 | NUR ---
PT WAS TRANSFERRED FROM ICU TO [facility] UNIT ROOM 108A. RECEIVED PT FROM ICU NURSE ELAINA FOR CONTINUITY OF CARE. PT IS LETHARGIC, ABLE TO OPEN HIS EYES WHEN CALLED BY NAME. PT ON TRACH TO T PIECE AT 5L. PT AFEBRILE, MULTIPLE BACK WOUNDS, R HIP WOUND AND R HAND OPEN WOUND. PT HAS R FEMORAL CENTRAL LINE, TRIPLE LUMEN, INFUSING WELL. PT HAS PAEZ DRAINING WELL.BED PLACED IN LOW LOCKED POSITION. ALL PRECAUTIONS IN PLACE. WILL CONTINUE TO MONITOR.
--- NOTE | 2021-11-04 20:14 | NUR ---
PT. WAS TRANSPORTED SAFELY WITHOUT COMPLICATIONS TO THE TELEMETRY UNIT (ROOM 108) BY ME ALONGSIDE THE RN. ON ARRIVAL, SpO2 WAS 99%, HEART RATE 91 AND RESP. RATE 21; NEITHER SIGNS OF RESP. DISTRESS NOR LABORED BREATHING NOTED; PT. WILL BE CONTINUOUSLY MONITORED.
--- NOTE | 2021-11-04 21:00 | NUR ---
SCHEDULED MEDICATIONS GIVEN. PT TOLERATED WELL.O2 SAT AT 100%. ALL PRECAUTIONS IN PLACE. WILL CONTINUE TO MONITOR.
[2021-11-05] VITALS: BP 108/57
[2021-11-05] MEDS: BLOOD GLUCOSE MONITORING 1 DEV DEV FS SCH ×4 (00:37→18:46)
--- NOTE | 2021-11-05 00:45 | NUR ---
BLOOD SUGAR WAS CHECKED. 118. NO COVERAGE NEEDED. WILL CONTINUE TO MONITOR.
[2021-11-05] MEDS: HYDRAGUARD CREAM TP SCH ×2 (01:00→12:46)
--- NOTE | 2021-11-05 02:48 | NUR ---
PT ASLEEP. VISIBLE CHEST RISE AND FALL NOTED. O2 SAT AT 100%. WILL CONTINUE TO MONITOR.
[2021-11-05 04:00] VITALS: BP 113/65
--- NOTE | 2021-11-05 04:27 | NUR ---
0130 SXNED PATIENT. MOD AMT PALE YELLOW SECRETIONS. PATIENT ON 3L T-PIECE BUBBLE HUMIDIFIER.
--- NOTE | 2021-11-05 04:29 | NUR ---
0330 SXNED PT. NO SOB NOTED
--- NOTE | 2021-11-05 04:43 | NUR ---
SCHEDULED MEDICATIONS GIVEN. TUBE FEEDING CHANGED RUNNING GLUCERNA 1.2 AT 50ML/HR 100ML WF Q 6. PT TOLERATING WELL. ALL PRECAUTIONS IN PLACE. WILL CONTINUE TO MONITOR.
[2021-11-05] MEDS: PIPERACILLIN/TAZOBACTAM 3.375 GM in DEXTROSE 5% 50 ML IV SCH ×3 (04:45→22:03)
--- NOTE | 2021-11-05 06:37 | NUR ---
BLOOD SUGARS WAS 150. NO COVERAGE NEEDED. WILL CONTINUE TO MONITOR.
--- NOTE | 2021-11-05 06:38 | NUR ---
PT IS STABLE. NO ACUTE EVENTS THROUGHOUT THE NIGHT. NO S/SX OF DISTRESS NOTED. ALL NEEDS ATTENDED.ALL PRECAUTIONS IN PLACE. WILL ENDORSE TO AM SHIFT NURSE.
[2021-11-05 07:13] LABS: BASOPHILS % (AUTO) 0.1 % (0.0-2.0); HEMATOCRIT 26.9 % (36-52); HEMOGLOBIN 8.9 g/dL (12.0-18.0); LYMPHOCYTES # (AUTO) 1.7 K/uL (2.0-11.5); LYMPHOCYTES % (AUTO) 12.4 % (20.5-51.1); MEAN CORPUSCULAR HEMOGLOBIN 31 pg (27-31); MEAN CORPUSCULAR HGB CONC 33 g/dL (33-37); MEAN CORPUSCULAR VOLUME 95.3 fL (80-94); MONOCYTES # (AUTO) 0.7 K/uL (0.8-1.0); MONOCYTES % (AUTO) 5.2 % (1.7-9.3); NEUTROPHILS # (AUTO) 11.5 K/uL (1.8-7.7); NEUTROPHILS % (AUTO) 82.3 % (42.2-75.2); PLATELET COUNT (AUTO) 45 K/uL (140-450); RED BLOOD CELL COUNT(AUTO) 2.83 MIL/uL (4.20-6.10); RED CELL DISTRIBUTION WIDTH 18.9 % (11.6-13.7)
[2021-11-05 07:30] LABS: ANION GAP 15.2 (8-16); CARBON DIOXIDE 17.8 mmol/L (21-32); CHLORIDE 110 mmol/L (98-107); CREATININE 1.3 mg/dL (0.6-1.3); GLUCOSE 161 mg/dL (74-106); SODIUM SERUM 139 mmol/L (136-145); UREA NITROGEN, BLOOD 36 mg/dL (7-18)
[2021-11-05 07:34] LABS: MAGNESIUM 2.2 mg/dL (1.8-2.4); PHOSPHORUS 3.2 mg/dL (2.5-4.9)
[2021-11-05 08:00] VITALS: BP 105/58
[2021-11-05] MEDS: PANTOPRAZOLE 40 MG INJ VIAL IVP SCH ×2 (09:18→22:04)
[2021-11-05] MEDS: CALCIUM CARBONATE 500 MG TAB.CHEW GT SCH (09:19)
[2021-11-05] MEDS: AMIODARONE 200 MG TAB GT SCH ×2 (09:19→22:03)
[2021-11-05 12:00] VITALS: BP 111/61
[2021-11-05] MEDS: NON ADHERENT DRESSING TP SCH (12:46)
[2021-11-05] MEDS: THERAHONEY GEL 42.5 GM TP SCH (12:46)
--- NOTE | 2021-11-05 14:44 | NUR ---
DC PAEZ AND INSERTED A CONDOM CATHETER INSTEAD PER MD ORDER.
[2021-11-05 16:00] VITALS: BP 107/61
[2021-11-05] MEDS: INSULIN LISPRO SLIDING SCALE 100 UNITS/ML VIAL SUBQ PRN (18:47)
--- NOTE | 2021-11-05 19:25 | NUR ---
ENDORSED TO SECURITY TESTER NURSE FOR CONTINUITY OF CARE. POC DISCUSSED.
--- NOTE | 2021-11-05 19:30 | NUR ---
RECEIVED BEDSIDE REPORT FROM DAY SHIFT NURSE CONTINUITY OF CARE. PT IS LETHARGIC, ABLE TO OPEN HIS EYES WHEN CALLED BY NAME. SON AT BEDSIDE.PT ON TRACH TO T PIECE AT 3L. PT AFEBRILE, MULTIPLE BACK WOUNDS, R HIP WOUND AND R HAND OPEN WOUND. PT HAS R FEMORAL CENTRAL LINE, TRIPLE LUMEN, INFUSING WELL. PT HAS CONDOM CATH, DRAINING WELL.BED PLACED IN LOW LOCKED POSITION. ALL PRECAUTIONS IN PLACE. WILL CONTINUE TO MONITOR.
[2021-11-05 20:00] VITALS: BP 108/71
--- NOTE | 2021-11-05 21:00 | NUR ---
SCHEDULED MEDICATIONS GIVEN. PT TOLERATING WELL. ALL PRECAUTIONS IN PLACE. WILL CONTINUE TO MONITOR.
[2021-11-06] VITALS: BP 111/67
--- NOTE | 2021-11-06 | NUR ---
BLOOD SUGAR WAS CHECKED. 93. NO COVERAGE NEEDED. WILL CONTINUE TO MONITOR.
[2021-11-06] MEDS: HYDRAGUARD CREAM TP SCH ×2 (01:27→12:19)
--- NOTE | 2021-11-06 01:50 | NUR ---
PT ASLEEP. VISIBLE CHEST RISE AND FALL NOTED. O2 SAT AT 100%. WILL CONTINUE TO MONITOR.
[2021-11-06 04:00] VITALS: BP 114/64
--- NOTE | 2021-11-06 05:00 | NUR ---
SCHEDULED MEDICATIONS GIVEN. PT TOLERATING WELL. ALL PRECAUTIONS IN PLACE. WILL CONTINUE TO MONITOR.
[2021-11-06] MEDS: PIPERACILLIN/TAZOBACTAM 3.375 GM in DEXTROSE 5% 50 ML IV SCH ×3 (05:18→21:27)
--- NOTE | 2021-11-06 06:00 | NUR ---
BLOOD SUGAR WAS CHECKED. 84. NO COVERAGE NEEDED. WILL CONTINUE TO MONITOR.
[2021-11-06] MEDS: BLOOD GLUCOSE MONITORING 1 DEV DEV FS SCH ×4 (06:15→18:20)
--- NOTE | 2021-11-06 06:25 | NUR ---
PT IS STABLE. NO ACUTE EVENTS THROUGHOUT THE NIGHT. NO S/SX OF DISTRESS NOTED. ALL NEEDS ATTENDED.ALL PRECAUTIONS IN PLACE. WILL ENDORSE TO AM SHIFT NURSE.
[2021-11-06 07:12] LABS: MAGNESIUM 2.2 mg/dL (1.8-2.4); PHOSPHORUS 3.7 mg/dL (2.5-4.9)
[2021-11-06 07:19] LABS: HEMOGLOBIN 9.1 g/dL (12.0-18.0); MEAN CORPUSCULAR HEMOGLOBIN 31 pg (27-31); MEAN CORPUSCULAR HGB CONC 32 g/dL (33-37); MEAN CORPUSCULAR VOLUME 96.3 fL (80-94); RED BLOOD CELL COUNT(AUTO) 2.91 MIL/uL (4.20-6.10); RED CELL DISTRIBUTION WIDTH 19.5 % (11.6-13.7); WHITE BLOOD COUNT (AUTO) 15.4 K/uL (4.8-10.8)
--- NOTE | 2021-11-06 07:34 | NUR ---
ENDORSED TO AM SHIFT NURSE FOR CONTINUITY OF CARE. PT IS STABLE.
[2021-11-06 08:00] VITALS: BP 110/61
[2021-11-06 08:12] LABS: ANION GAP 19.2 (8-16); CARBON DIOXIDE 17.6 mmol/L (21-32); CHLORIDE 112 mmol/L (98-107); CREATININE 1.5 mg/dL (0.6-1.3); GLUCOSE 86 mg/dL (74-106); POTASSIUM 3.8 mmol/L (3.5-5.1); SODIUM SERUM 145 mmol/L (136-145); UREA NITROGEN, BLOOD 40 mg/dL (7-18)
[2021-11-06] MEDS: PANTOPRAZOLE 40 MG INJ VIAL IVP SCH ×2 (09:50→21:27)
[2021-11-06] MEDS: CALCIUM CARBONATE 500 MG TAB.CHEW GT SCH (09:50)
[2021-11-06] MEDS: AMIODARONE 200 MG TAB GT SCH ×2 (09:50→21:27)
[2021-11-06 09:51] LABS: BASOPHILS % (MANUAL) 0 % (0-2); BLASTS, MANUAL % 0 % (0-0); EOSINOPHILS % (MANUAL) 0 % (0-4); LYMPHOCYTES % (MANUAL) 14 % (20-46); METAMYELOCYTES % 0 % (0-0); MONOCYTES % (MANUAL) 7 % (5-12); MYELOCYTES % 0 % (0-0); OTHER CELLS,MANUAL % 0 (0-0); PROMYELOCYTES % 0 % (0-0)
[2021-11-06 09:54] LABS: BUFFY COAT SMEAR PREP 0
[2021-11-06 10:01] LABS: PLATELET COUNT (AUTO) 41 K/uL (140-450)
[2021-11-06 12:00] VITALS: BP 114/68
[2021-11-06] MEDS: NON ADHERENT DRESSING TP SCH (12:19)
[2021-11-06] MEDS: THERAHONEY GEL 42.5 GM TP SCH (12:19)
--- NOTE | 2021-11-06 14:00 | NUR ---
CHAnged TUBE FEEDING. BREATING EVEN AND UNLABORED. NO SIGNS OF DISTRESS NOTED. PT IS STABLE.
[2021-11-06 16:00] VITALS: BP 114/63
[2021-11-06] MEDS: NACL 0.9% 1,000 ML IV SCH (16:40)
--- NOTE | 2021-11-06 18:00 | NUR ---
MD ORDERED NS AT [address] ANGIO CHEST WITH CONTRAST TO RULE PUT EMBOLISM. THE US VENOUS DOPPLER CAME BAKC NEGATIVE FOR DVT. BREATHING EVEN AND UNLABORED. NO SIGNS OF DISTRESS NOTED. PT IS STABLE.
--- NOTE | 2021-11-06 19:30 | NUR ---
ENDORSED PT TO NIGHT AHIFT NURSE FOR CONTINUITY OF CARE. POC DISCUSSED.
[2021-11-06 20:00] VITALS: BP 115/65
[2021-11-07] VITALS: BP 112/68
[2021-11-07] MEDS: BLOOD GLUCOSE MONITORING 1 DEV DEV FS SCH ×4 (01:16→18:00)
[2021-11-07] MEDS: HYDRAGUARD CREAM TP SCH ×2 (01:17→13:05)
[2021-11-07 04:00] VITALS: BP 157/79
[2021-11-07] MEDS: PIPERACILLIN/TAZOBACTAM 3.375 GM in DEXTROSE 5% 50 ML IV SCH ×3 (05:12→21:00)
[2021-11-07] MEDS: NACL 0.9% 1,000 ML IV SCH (05:13)
[2021-11-07 07:07] LABS: ANION GAP 21.2 (8-16); CHLORIDE 109 mmol/L (98-107); GLUCOSE 182 mg/dL (74-106); POTASSIUM 4.2 mmol/L (3.5-5.1); SODIUM SERUM 141 mmol/L (136-145); UREA NITROGEN, BLOOD 54 mg/dL (7-18)
--- NOTE | 2021-11-07 07:15 | NUR ---
RECEIVED BEDSIDE REPORT FROM REPORTING COORDINATOR NURSE FOR CONTINUITY OF CARE. PT IS SLEEPING. BREATHING IS EVEN AND UNLABORED. NO SIGNS OF DISTRESS NOTED. NO PAIN NOTED. RUNNING NS AT 75ML/HR. FEMORAL CENTRAL LINE PATENT AND INTACT. PT IS STABLE.
[2021-11-07 07:18] LABS: MAGNESIUM 2.4 mg/dL (1.8-2.4); PHOSPHORUS 5.1 mg/dL (2.5-4.9)
[2021-11-07 07:34] LABS: BASOPHILS % (AUTO) 0.2 % (0.0-2.0); HEMATOCRIT 28.6 % (36-52); HEMOGLOBIN 9.1 g/dL (12.0-18.0); LYMPHOCYTES # (AUTO) 1.2 K/uL (2.0-11.5); LYMPHOCYTES % (AUTO) 8.9 % (20.5-51.1); MEAN CORPUSCULAR HEMOGLOBIN 31 pg (27-31); MEAN CORPUSCULAR HGB CONC 32 g/dL (33-37); MONOCYTES # (AUTO) 0.9 K/uL (0.8-1.0); MONOCYTES % (AUTO) 6.4 % (1.7-9.3); NEUTROPHILS # (AUTO) 11.6 K/uL (1.8-7.7); NEUTROPHILS % (AUTO) 84.5 % (42.2-75.2); PLATELET COUNT (AUTO) 38 K/uL (140-450); RED BLOOD CELL COUNT(AUTO) 2.92 MIL/uL (4.20-6.10); RED CELL DISTRIBUTION WIDTH 20.6 % (11.6-13.7); WHITE BLOOD COUNT (AUTO) 13.8 K/uL (4.8-10.8)
[2021-11-07 08:00] VITALS: BP 146/78
[2021-11-07] MEDS: PANTOPRAZOLE 40 MG INJ VIAL IVP SCH ×2 (09:16→21:00)
[2021-11-07] MEDS: CALCIUM CARBONATE 500 MG TAB.CHEW GT SCH (09:16)
[2021-11-07] MEDS: AMIODARONE 200 MG TAB GT SCH ×2 (09:16→21:00)
--- NOTE | 2021-11-07 10:57 | NUR ---
PT IS SLEEPING. BREATHING IS EVEN AND UNLABORED. NO SIGNS OF DISTRESS NOTED. NO PAIN NOTED. RUNNING NS AT 75ML/HR. FEMORAL CENTRAL LINE PATENT AND INTACT. PT IS STABLE.
[2021-11-07 12:00] VITALS: BP 124/69
[2021-11-07] MEDS ORDERED: HYDROCOLLOID DRESSING TP SCH (13:00)
[2021-11-07] MEDS ORDERED: FOAM DRESSING TP SCH (13:00)
--- NOTE | 2021-11-07 13:00 | NUR ---
THEY DID A CT ANGIO CHEST WITH CONTRAST TO RULE OUT PE. PT IS BREATHING EVEN AND UNLABORED. NO SIGNS OF DISTRESS NOTED. PT IS STABLE. VS ARE WNL.
[2021-11-07] MEDS: NON ADHERENT DRESSING TP SCH (13:07)
[2021-11-07] MEDS: THERAHONEY GEL 42.5 GM TP SCH (13:12)
--- NOTE | 2021-11-07 15:35 | NUR ---
SPUTUM WAS COLLECTED FOR CULTURE. ANGIO CT WITH CONTRAST WAS PERFORMED PT TOLERATED WELL. PT IS SLEEPING. BREATHING IS EVEN AND UNLABORED. NO SIGNS OF DISTRESS NOTED. NO PAIN NOTED. RUNNING NS AT 75ML/HR. FEMORAL CENTRAL LINE PATENT AND INTACT. PT IS STABLE.
--- NOTE | 2021-11-07 15:40 | NUR ---
DR ENRIQUEZ DC FLUIDS AND STATES HE WILL DIURESE PT FOR ONE DAY THEN DC PT. PT IS RESTING. BREATHING IS EVEN AND SEMI LABORED. NO SIGNS OF DISTRESS NOTED. NO PAIN NOTED. NS IS TKO. FEMORAL CENTRAL LINE PATENT AND INTACT. PT IS STABLE.
--- NOTE | 2021-11-07 15:45 | NUR ---
11/07/21 RD FOLLOW UP COMPLETED PLEASE REFER TO NUTRITION ASSESSMENT UNDER CARE ACTIVITY FOR ESTIMATED NUTRITIONAL NEEDS. 1. CONTINUE GLUCERNA 1.2 @ 50 ML/HR TOLERATED -FWF: 100 ML Q6H OR PER MD -PROVIDES 1440 KCAL AND 72 GM PROTEIN 2. CONTINUE ARMAND BID PER RD PROTOCOL -WITH ARMAND BID, PT WILL RECEIVE 1600 KCAL AND ~100 GM PROTEIN MEETING 85% ESTIMATED KCAL AND 100% ESTIMATED PROTEIN NEEDS 3. MONITOR GASTRIC RESIDUALS 4. RD TO FOLLOW-UP 2-3 DAYS, HIGH RISK EMILIE MARTIN RD
[2021-11-07 16:00] VITALS: BP 115/62
[2021-11-07] MEDS ORDERED: FUROSEMIDE 40 MG/4 ML VIAL IVP SCH (17:00)
--- NOTE | 2021-11-07 17:00 | NUR ---
PT WITH FAMILY AT BEDSIDE. BREATHING IS EVEN AND UNLABORED. NO SIGNS OF DISTRESS NOTED. PT SLEEPING. 3 LUMEN FEMORAL LINE IS INTACT PATENT AND NO SIGNS OF INFECTION. PT IS ON 2L O2 HUMIDIFIED ON TRACH TO TPIECE. PT IS STABLE.
--- NOTE | 2021-11-07 19:00 | NUR ---
WALKED IN TO CLEAN PATIENT BEFORE END OF SHIFT. FAMILY MEMBER LEFT ROOM TO GO SWITCH PLACES WITH THE SON OF PT. I AND THE OPTICAL MANAGER CHANGED THE PT, STILL BREATHING REGULAR AND SIGNS OF DISTRESS NOTED. ONCE WE FINISHED CLEANING PT, SPORTS PHYSIOTHERAPIST STATED THAT HR WAS DROPPING TO 32 RAPIDLY. I CHECKED BREATHING AND PULSE AND NOTED NO BREATHS OR PULSE. CALLED CODE BLUE AT 1750. POLST AND SON STATED THAT NO HEROIC MEASURES, ONLY MEDS AND AMBUBAG. NO COMPRESSIONS OR SHOCK. DURING CODE THEY GAVE 1 EPI SHOT AND ONLY BAGGING, NO PULSE OR REVIVAL. CALLED THE TIME OF AT 1828. PT SON AND 2 OTHER FAMILY MEMBERS AT BEDSIDE. CALLED [facility] AND AFTER 30 MINUTE CONVERSATION THEY DECIDED TO NOT ASK FOR DONATIONS AND SAID THEY ARE RELEASING BODY. CASE NUMBER WAS WRITTEN DOWN ON DECEASES PAPERWORK. ENDORSED TO FILTER TIP CATCHER NURSE TO CONTINUE POST MORTEM CARE. RN WILL CALL MORTUARY, GAVE HER THE RELEASE AND CASE NUMBER FROM [facility].
--- NOTE | 2021-11-07 19:30 | NUR ---
RECEIVED REPORT FROM JOHANNA RN DAYSHIFT NURSE AT BEDSIDE. PT IS , HE IS ON THE BODY BAG LYING ON THE BED SURROUNDED BY FAMILY. JOHANNA HAS CALLED [facility] AND THEY HAVE RELEASED THE BODY . WILL GRACIE MULTANI AND SPEAK TO POINT OF CONTACT SON REGARDING MORTUARY OF CHOICE.
--- NOTE | 2021-11-07 21:00 | NUR ---
FAMILY PROVIDED WITH JUICE AND WATER AT BEDSIDE. PLACED A CALL TO THE [facility] OFFICE INCIDENT CASE NUMBER [id number].
--- NOTE | 2021-11-07 22:12 | NUR ---
SPOKE WITH CHACHO MATUTE WHOM RELEASED THE BODY, SON WHO IS TH E POWER OF PATIENT CARE SECRETARY ALSO SPOKE WITH HER ANS SHE WAS ABLE TO ANSWER HIS QUESTIONS IN REGARDS TO RELEASING THE BODY AND THE CAUSE OF . FAMILY SET UP THE MORTUARY. BELONGINGS RELEASED TO SON AND POWER OF PATIENT CARE SECRETARY AL NIETO. SON SIGNED RECORD OF AND AUTHORIZATION OF RELEASE. SON ASKED IF WE COULD REMOVE THE LINES ON THE PT IE TRACH AND FEMORAL LINES. SON WAS TOLD NO WE DON'T DO THAT THAT IS FOR THE MORTUARY TO TAKE CARE OF. SON ASKED IF HE COULD REMOVE THESE AND WAS TOLD NO, THAT IS FOR THE MORTUARY TO TAKE CARE AND IT MAY AFFECT THE PROCESSING OF THE BODY.
--- NOTE | 2021-11-07 22:22 | NUR ---
[facility]ESSIONAL SECURITY OFFICER THE BODY BETWEEN 9-10 AM TOMORROW. [address]ESS [place] [id number] [facility] [id number] # [phone].
--- NOTE | 2021-11-07 23:21 | NUR ---
FAMILY STILL AT BEDSIDE. SON AHMAD CONCERNS ADDRESSED BY PRIMARY AND CHARGE NURSE.
--- NOTE | 2021-11-07 23:48 | NUR ---
FAMILY LEFT BEDSIDE.
[2021-11-08] MEDS: BLOOD GLUCOSE MONITORING 1 DEV DEV FS SCH
--- NOTE | 2021-11-08 00:30 | NUR ---
NO REFRIGERATION AVAILABLE PT MOVED TO 114 SENIOR ACCOUNTING ANALYST MADE AWARE.
[2021-11-08] MEDS: HYDRAGUARD CREAM TP SCH (01:00)
[2021-11-08] MEDS: PIPERACILLIN/TAZOBACTAM 3.375 GM in DEXTROSE 5% 50 ML IV SCH (01:50)
--- NOTE | 2021-11-08 05:59 | NUR ---
BODY CLEANED BAGGED AND TAGGED AND READY FOR SWITCHGEAR REPAIRER.
== END 2021-11-07 18:27 | DRG 393 ==
LOC: MED 07:01 → MIC 08:50 → MTU 11-04 20:00
PROVIDERS: ADMIT Hospitalist; ATTEND Hospitalist
PROC: 06HY33Z Insertion of Infusion Device into Lower Vein, Percutaneous Approach (ICD-10-PCS; 2021-11-02)
PROC: B54BZZA Ultrasonography of Right Lower Extremity Veins, Guidance (ICD-10-PCS; 2021-11-02)
PROC: 30233N1 Transfusion of Nonautologous Red Blood Cells into Peripheral Vein, Percutaneous Approach (ICD-10-PCS; 2021-11-02)
PROC: 30233R1 Transfusion of Nonautologous Platelets into Peripheral Vein, Percutaneous Approach (ICD-10-PCS; 2021-11-03)
PROC: 0DJD8ZZ Inspection of Lower Intestinal Tract, Via Natural or Artificial Opening Endoscopic (ICD-10-PCS; principal; 2021-11-04)
DX: K55.9 Vascular disorder of intestine, unspecified (principal); R53.2 Functional quadriplegia; J15.9 Unspecified bacterial pneumonia; I50.23 Acute on chronic systolic (congestive) heart failure; K72.00 Acute and subacute hepatic failure without coma; D62 Acute posthemorrhagic anemia; K63.3 Ulcer of intestine; R57.9 Shock, unspecified; N17.9 Acute kidney failure, unspecified; J96.11 Chronic respiratory failure with hypoxia; J44.0 Chronic obstructive pulmonary disease with (acute) lower respiratory infection; I13.0 Hypertensive heart and chronic kidney disease with heart failure and stage 1 through stage 4 chronic kidney disease, or unspecified chronic kidney disease; D69.6 Thrombocytopenia, unspecified; E11.22 Type 2 diabetes mellitus with diabetic chronic kidney disease; E78.5 Hyperlipidemia, unspecified; E03.9 Hypothyroidism, unspecified; I25.10 Atherosclerotic heart disease of native coronary artery without angina pectoris; I25.5 Ischemic cardiomyopathy; I48.91 Unspecified atrial fibrillation; N40.0 Benign prostatic hyperplasia without lower urinary tract symptoms; Z20.822 Contact with and (suspected) exposure to COVID-19; N18.9 Chronic kidney disease, unspecified; I27.20 Pulmonary hypertension, unspecified; K74.60 Unspecified cirrhosis of liver; L89.150 Pressure ulcer of sacral region, unstageable; Z95.1 Presence of aortocoronary bypass graft; Z95.810 Presence of automatic (implantable) cardiac defibrillator; Z93.1 Gastrostomy status; Z86.16 Personal history of COVID-19; Z88.5 Allergy status to narcotic agent; Z79.899 Other long term (current) drug therapy
CPT/HCPCS: 36415; 36430; 36556; 71045; 71275; 76700; 80048; 80053; 80076; 82140; 82272; 82607; 82728; 82746; 82948; 83036; 83540; 83605; 83735; 83880; 84100; 84484; 85025; 85045; 85384; 85610; 85730; 86702; 86803; 86886; 86900; 86901; 86920; 87040; 87045; 87070; 87081; 87205; 92950; 93970; 96361; 96374; 99291; C9113; J0171; J1815; J1940; J2001; J2060; J2250; J2354; J2543; J3010; J3475; J3490; J7030; J7060; P9016; P9035; P9046; Q0092; Q9967